=== PATIENT | female | born 1990 | race Caucasian/White ===

== ENCOUNTER 2018-05-05 18:55 | Inpatient (IN) | payer MEDICAID, SELFPAY ==
--- NOTE | 2018-05-05 19:16 | PCM.HP.OB ---
- Problem List (1) demise before 20 weeks with retention of fetus Status: Acute History Date of Admission: 05/05/18 Final MICHELL: 10/11/18 Final MICHELL Source: US <20 weeks Gestational age: 17 Weeks and 2 Days History of this : This is a 28 year-old, G4, P3, at 17 weeks gestational age who presents for IOL for demise. She had her anatomy US on 05/04/18, and was measuring 17 wks at that time with no heart beat. She has no complaints or symptoms today. Medical History: Medical History (Last Updated 05/05/18 @ 19:19 by Eunice Jensen DO) Marijuana use F12.90 Seizure R56.9 Allergies No Known Allergies Allergy (Verified 04/13/16 13:14) Home Medications: Home Medications Pnv95/Ferrous Fumarate/FA [ Formula] 1 each PO DAILY MDD 1 01/24/16 Ibuprofen [Motrin] 800 mg PO TID PRN #30 tablet 08/20/16 Smoking Status: Current every day smoker Number of Fetus(es): 1 History Past Pregnancies: Past Pregnancies Delivery Date Name GA/Weeks Outcome Route Weight Infant Gender Labor Length Anesthesia Delivery Location Provider FOB term term term Labs: Syphilis NR, RI, HepB neg, HIV NR, Rh pos, Angel screen neg, Urine tox pos cannabinoids, GC/CT neg Expected Delivery Method: Spontaneous Vaginal Review of Systems Unable to obtain accurate/complete ROS d/t: Patient very tearful and upset on exam. She denies symptoms Physical Exam General: Alert, Oriented x3 HEENT: Atraumatic Lungs: - - No increased resp effort Abdomen: Soft, Non Tender Extremities:: No edema Neurological: Neuro grossly intact STAFFING AND SCHEDULING COORDINATOR: Normal external genitalia Cervix Dilation (cm): 0 Assessment/Plan All Active Problems (Last Updated 05/05/18 @ 19:19 by Eunice Jensen DO) Dental abscess (Acute) demise before 20 weeks with retention of fetus (Acute) This is a 28 year-old, , at 17 weeks gestational age who presents for IOL for demise. - Admit to L&D - Cytotec 400mcg PV q 6 hrs - Discussed pain control options with patient. May have either epidural, nubain, or dilaudid pin cleaner as needed per patient request - Saline lock IV for now - Briefly reviewed option for genetic testing. Will discuss more after delivery - Will plan to send placenta to pathology - Support provided at bedside - Placed first dose of Cytotec
--- NOTE | 2018-05-05 19:21 | HP.PCM_ITS ---
- Problem List (1) demise before 20 weeks with retention of fetus Status: Acute History Date of Admission: 05/05/18 Final MICHELL: 10/11/18 Final MICHELL Source: US <20 weeks Gestational age: 17 Weeks and 2 Days History of this : This is a 28 year-old, G4, P3, at 17 weeks gestational age who presents for IOL for demise. She had her anatomy US on 05/04/18, and was measuring 17 wks at that time with no heart beat. She has no complaints or symptoms today. Medical History: Medical History (Last Updated 05/05/18 @ 19:19 by Eunice Jensen DO) Marijuana use F12.90 Seizure R56.9 Allergies No Known Allergies Allergy (Verified 04/13/16 13:14) Home Medications: Home Medications Pnv95/Ferrous Fumarate/FA [ Formula] 1 each PO DAILY MDD 1 01/24/16 Ibuprofen [Motrin] 800 mg PO TID PRN #30 tablet 08/20/16 Smoking Status: Current every day smoker Number of Fetus(es): 1 History Past Pregnancies: Past Pregnancies Delivery Date Name GA/Weeks Outcome Route Weight Infant Gender Labor Length Anesthesia Delivery Location Provider FOB term term term Labs: Syphilis NR, RI, HepB neg, HIV NR, Rh pos, Angel screen neg, Urine tox pos cannabinoids, GC/CT neg Expected Delivery Method: Spontaneous Vaginal Review of Systems Unable to obtain accurate/complete ROS d/t: Patient very tearful and upset on exam. She denies symptoms Physical Exam General: Alert, Oriented x3 HEENT: Atraumatic Lungs: - - No increased resp effort Abdomen: Soft, Non Tender Extremities:: No edema Neurological: Neuro grossly intact DRIVER MANAGER: Normal external genitalia Cervix Dilation (cm): 0 Assessment/Plan All Active Problems (Last Updated 05/05/18 @ 19:19 by Eunice Jensen DO) Dental abscess (Acute) demise before 20 weeks with retention of fetus (Acute) This is a 28 year-old, , at 17 weeks gestational age who presents for IOL for demise. - Admit to L&D - Cytotec 400mcg PV q 6 hrs - Discussed pain control options with patient. May have either epidural, nubain, or dilaudid art coordinator as needed per patient request - Saline lock IV for now - Briefly reviewed option for genetic testing. Will discuss more after delivery - Will plan to send placenta to pathology - Support provided at bedside - Placed first dose of Cytotec
[2018-05-05] MEDS: miSOPROStol 200 MCG Tablet 400 MCG VAGINAL (19:45)
[2018-05-05] MEDS: 0.9% Saline Lock 10 ML Syringe IV (20:05)
[2018-05-05 20:22] VITALS: BMI 37.2
[2018-05-05 20:41] LABS: Hematocrit 39.9 % (37-47); Mean Corp Hgb Conc 35.1 g/gl (32-36); Mean Corpuscular Hgb 30.9 pg (27.0-32.0); Mean Corpuscular Volume 88.1 fL (81-99); Platelet Count 243 K/mm3 (150-450); RBC Distribution Width CV 13.4 % (11.6-14.6); RBC Distribution Width SD 42.9 fl (35.1-43.9); Red Blood Count 4.53 M/mm3 (4.2-5.4); Scan Indicated on CBC? Y/N NO; White Blood Count 11.1 K/mm3 (4.4-11.0)
[2018-05-06] MEDS: miSOPROStol 200 MCG Tablet 400 MCG VAGINAL ×4 (02:06→15:55)
--- NOTE | 2018-05-06 08:25 | PCM.PN.BLA ---
Progress Note Third dose of Cytotec 400mcg coated in betadine and placed in posterior fornix. Fetus palpated to be lower, but unable to assess cervical dilation given cervix very posterior. Pt tearful and upset. Family and RN at bedside for support.
--- NOTE | 2018-05-06 08:37 | CASEMGMT ---
Addendum entered by Zee Wang 05/06/18 12:50: SW met with pt. Pt's mom is present in room. Pt gave this worker permission to speak to pt in front of guest. Pt states that she is getting through things. SW offered support to pt. Pt states that she has good support around her and she currently see's a counselor at [facility] and she plans on continuing counseling services at discharge. Pt denied wanting additional resources for herself but states that her significant other Jacob is struggling and mentioned getting help. SW provided pt with counseling services resources and information on support groups in the event pt wants additional information/resources or pt's significant other wants information on services available. Pt denied additional needs or concerns at this time. Original Note: Social Work Note SW attempted to see pt to check in with pt and offer support. Patient currently being seen by medical staff and this worker unable to talk to pt at this time. SW will attempt to see pt later if time allows today or will wait to see if referral is made by staff to see pt. Zee Wang [employer]ER, EVP OPERATIONS
--- NOTE | 2018-05-06 12:28 | PCM.PN.BLA ---
Progress Note At bedside for cytotec placement. Cvx 1.5/t/h. Cytotec 400 mcg coated in betadine and placed in posterior fornix. Pt not feeling cramping. No VB. Continue current management with Cytotec 400 mcg q 4 hrs
[2018-05-06] MEDS: Nalbuphine 10 MG/ML Ampul IV (15:29)
[2018-05-06] MEDS: 0.9% Saline Lock 10 ML Syringe IV (15:31)
--- NOTE | 2018-05-06 15:59 | PCM.PN.BLA ---
Progress Note Pt now feeling cramping. S/p 1 dose of Nubain. Cvx 3-4 cm, bag of water palpated. Cytotec 400 mcg coated in betadine and placed in posterior fornix. Continue current management.
--- NOTE | 2018-05-06 16:30 | PLAC_PTH ---
PATIENT: RICH ENCARNACION LOC: [facility] U#:[id number] AGE/SX: 28/F ROOM: WP021 RE05/05/[address]: Dr. Eunice Jensen DO : 1990 BED: 1 DIS: 05/07/2018 SPEC #: [id number] RECD: 05/07/18 05:50 STATUS: MAGALIS REClarita #: [id number] ROXIE: 05/06/18 16:[address]: Eunice Jensen DEPT: SURGICAL PATHOLOGY RECD BY: Wili Blum ENTERED: 05/08/18 11:31 SP TYPE: PLACENTA OTHR DR: No Primary Care Phys Tissues: Placenta, NOS Procedures: Surgery Specimen Level IV HEADER OPERATION: D & C PRE-OP DIAGNOSIS: demise TISSUE SUBMITTED: Placenta MICROSCOPIC DIAGNOSIS Placenta: Immature placental tissue including umbilical cord and membranes (56 gm), no pathologic diagnosis. SJ:keke 10/9/18 MICROSCOPIC DESCRIPTION Slides are reviewed. GROSS DESCRIPTION Received is one container labeled with the patient's name and not further designated. The specimen consists of multiple pieces of placental tissue that in aggregate measure 11 x 10 x 3 cm and weighing 56 gm. A piece of membrane is also noted which is mullins glistening. A piece of umbilical cord is also noted measuring 23 cm in length and 0.2 cm in diameter. Sections do not reveal any mass lesion. Safe Deposit Clerk sections are submitted in four cassettes. Cassette 1 contains the umbilical cord and membrane. / FATOU:keke 05/08/18 TC:5 CPT: 93560
[2018-05-06] MEDS: Methylergonovine 0.2 MG/ML Ampul IM (16:52)
--- NOTE | 2018-05-06 17:28 | PCM.OB.VAG ---
- Problem List (1) demise, less than 22 weeks, delivered, current hospitalization Status: Acute Vaginal Delivery Maternal Presentation: Medically Indicated Induction - demise with retention of fetus Method of Induction: Cytotec Medical Reason for Induction: demise Amniotic Membrane Rupture Type: Spontaneous Amniotic Fluid Description: Clear Final MICHELL: 10/11/18 Gestational age: 17 Weeks and 3 Days Date of Procedure: 05/06/18 Pre-Operative Diagnosis: Demise, Induction Post-Operative Diagnosis: Vaginal delivery of demise Surgery/ Procedure Performed: Spontaneous Vaginal Delivery Type of Anesthesia: None Description of Procedure: Patient called out to nursing staff that her water had broken. Upon entrance into the room the patient stated, It came out. Vaginal delivery of fetus into bed. Cord wrapped around neck x3 and around arm x1 tightly. Cord cut and wrapped in blanket, handed to mother. Mother very tearful, emotional support provided. Small gush of blood, placenta remained undelivered. Pitocin 10 units IM x 1. consulted and ordered 0.2mcg Methergine IM x 1 for placenta delivery. Bleeding stable. Will await delivery of placenta. A gender: Male Episiotomy Description: None Laceration: None Medications given after delivery: IM Methergin, - - IM Pitocin
[2018-05-06 18:00] VITALS: BP 116/70; PULSE 62; RESP 18; TEMP 37.3
--- NOTE | 2018-05-06 18:23 | NURSING ---
baby delivered at 1630 in room immediately after water broke. Father of baby came to nurses station, Calista Lerma CNM and RN to room. Baby delivered in bed. Placenta not out at this time. 135grams 18 cm length, 5 inch head circumference.
[2018-05-06] MEDS: miSOPROStol 200 MCG Tablet PO (19:01)
--- NOTE | 2018-05-06 19:46 | PCM.PN.OB ---
Patient Problems: Active and Suspected Problems (Last Updated 05/05/18 @ 19:19 by Eunice Jensen DO) demise before 20 weeks with retention of fetus (Acute) demise, less than 22 weeks, delivered, current hospitalization (Acute) Subjective: Patient sitting up in bed. Doing well, upset placenta not delivered. Family present at bedside and coping well. Objective: Cervix approximately 2-3cm dilated, placenta not through cervical os. Bleeding stable. - Physical Exam Vital Signs Temp Pulse Resp BP 99.1 F 62 18 116/70 05/06/18 18:00 05/06/18 18:00 05/06/18 18:00 05/06/18 18:00 Oxygen Delivery Method Room Air Weight: 245 lb Body Mass Index (BMI) 37.2 Laboratory Tests Past 24 Hrs 05/05/18 05/05/18 20:05 20:05 WBC 11.1 H RBC 4.53 Hgb 14.0 Hct 39.9 MCV 88.1 MCH 30.9 MCHC 35.1 RDW 13.4 RDW Differential 42.9 Plt Count 243 MPV 11.0 Blood Type O POSITIVE Antibody Screen NEGATIVE Medical Necessity - Tobacco Use Smoking Status: Current every day smoker Assessment/Plan All Active Problems (Last Updated 05/05/18 @ 19:19 by Eunice Jensen DO) Dental abscess (Acute) demise before 20 weeks with retention of fetus (Acute) demise, less than 22 weeks, delivered, current hospitalization (Acute) A: Vaginal delivery of demise Retained placenta P: 1) notified of placenta retained and not expelled fter dose of cytotec and methergine. 2) Reviewed options with patient and agreeable to D&C. to L&D for consent and referral of management.
--- NOTE | 2018-05-06 20:12 | PCM.PN.BLA ---
Progress Note At bedside to discuss suction D&C with patient for retained placenta. Reviewed risks including bleeding, infection, uterine perforation. Consent signed. Doxy 200mg IV x 1 to be given pre-op.
[2018-05-06] MEDS: Sodium Citrate/Citric Acid 30 ML UDC PO (20:22)
[2018-05-06] MEDS: Lactated Ringers 1,000 ML 50 ML IV ×2 (20:22→22:16)
[2018-05-06 21:45] VITALS: BP 112/65; PULSE 58; RESP 16; TEMP 36.9; O2SAT 96
--- NOTE | 2018-05-06 21:54 | PCM.OP.BLANK ---
Problem List (1) demise before 20 weeks with retention of fetus Status: Acute Operative Report Date of Procedure: 05/06/18 Preoperative diagnosis: Retained placenta Postoperative diagnosis: Retained placenta Procedure performed: Suction dilation and curettage under ultrasound guidance Anesthesia: MAC Estimated blood loss: 500 cc Complications: None Findings: Retained placenta Indications: The patient is a 28-year-old who presented on 05/05/18 for induction for a 17-week demise. Her induction was started with Cytotec and she delivered the fetus. She was given Pitocin, Methergine, and Cytotec and the placenta did not deliver after adequate time. Decision was made to proceed with a suction dilation and curettage for retained placenta. Risks, benefits, and alternatives were discussed and patient was consented. Procedure: The patient was given Doxycyline before the procedure. She was taken to the operating room where MAC anesthesia was administered without difficulty and was found to be adequate. The patient was prepped and draped in the usual sterile fashion in dorsal lithotomy position using yellow fin stirrups. A weighted speculum was placed. The anterior lip of the cervix was grasped with a ring forcep. The uterus was palpated to be about 12 weeks size. The cervix was dilated. A 12 mm suction curettage was advanced into the uterine cavity without difficulty and was used to suction contents of the uterus. A sharp curettage was then advanced into the uterine cavity and used to scrape the 4 brar of the uterus to remove additional products of conception and small pieces. The suction curettage and sharp curettage were performed several additional times, and the placenta was removed in small adherent pieces. Ultrasound was performed throughout the procedure. The uterus was boggy, and methergine x 1 as well as pitocin were given. The sharp curettage was then used again to scrape the 4 brar of the uterus until a gritty texture was noted. At this time a suction curettage was advanced one additional time to suction any remaining products. Ultrasound showed no remaining products of conception within the uterus. All instruments were removed. Hemostasis was noted. The patient was stable at the completion of the procedure. Sponge, lap, instrument counts were correct.
[2018-05-06 22:00] VITALS: BP 127/62; PULSE 56; RESP 16; O2SAT 96
[2018-05-06 22:15] VITALS: BP 115/68; PULSE 61; RESP 17
[2018-05-06 22:22] LABS: Hematocrit 34.8 % (37-47); Mean Corp Hgb Conc 34.5 g/gl (32-36); Mean Corpuscular Hgb 30.4 pg (27.0-32.0); Mean Corpuscular Volume 88.1 fL (81-99); Mean Platelet Vol. 10.8 fl (6.2-12.0); Platelet Count 228 K/mm3 (150-450); RBC Distribution Width CV 13.1 % (11.6-14.6); RBC Distribution Width SD 42.4 fl (35.1-43.9); Red Blood Count 3.95 M/mm3 (4.2-5.4); White Blood Count 11.5 K/mm3 (4.4-11.0)
[2018-05-06 22:24] LABS: Scan Indicated on CBC? Y/N NO
[2018-05-06 22:36] VITALS: BP 112/72; PULSE 51; RESP 16; O2SAT 96
[2018-05-06 22:37] LABS: Prothrombin Time (Protime)PT. 13.3 SECONDS (11.7-14.9)
[2018-05-06 22:38] LABS: Partial Thromboplast Time 30.3 Seconds (24.1-36.2)
[2018-05-06 22:45] VITALS: BP 112/70; PULSE 66; RESP 17; TEMP 37.2
[2018-05-07 02:00] VITALS: PULSE 64; RESP 17
[2018-05-07 06:21] LABS: Hematocrit 31.7 % (37-47); Mean Corp Hgb Conc 34.7 g/gl (32-36); Mean Corpuscular Hgb 30.7 pg (27.0-32.0); Mean Corpuscular Volume 88.5 fL (81-99); Mean Platelet Vol. 11.3 fl (6.2-12.0); Platelet Count 211 K/mm3 (150-450); RBC Distribution Width SD 40.1 fl (35.1-43.9); Red Blood Count 3.58 M/mm3 (4.2-5.4); White Blood Count 11.6 K/mm3 (4.4-11.0)
[2018-05-07 06:23] LABS: Prothrombin Time (Protime)PT. 13.5 SECONDS (11.7-14.9); Scan Indicated on CBC? Y/N NO
[2018-05-07 06:37] LABS: Partial Thromboplast Time 27.8 Seconds (24.1-36.2)
[2018-05-07 08:00] VITALS: BP 120/65; PULSE 66; RESP 16; TEMP 37.6
--- NOTE | 2018-05-07 08:14 | DCINST_ITS ---
- Discharge Diagnoses Current Active Problems: Current Active and Chronic Problems (Last Updated 05/05/18 @ 19:19 by Eunice Jensen DO) demise before 20 weeks with retention of fetus (Acute) demise, less than 22 weeks, delivered, current hospitalization (Acute) You will use the following diet at home:: No restrictions Your food should be the consistency of: Regular Discharge Activity: Return to Normal Activity, May Shower May resume sexual activity in: 4-6 weeks Weight Bearing Status: Full weight bearing Lifting Restrictions: None Call your doctor if you observe: Fever of 101 or Higher, Using more than one pad per hour, Shortness of breath, Chest pain, Calf discomfort, Uncontrolled pain Additional Instructions: Please follow up in the office in 1-2 weeks. Allergies/Adverse Reactions: Allergies No Known Allergies Allergy (Verified 04/13/16 13:14) Medications to take at Discharge Pnv95/Ferrous Fumarate/FA [ Formula] 1 each PO DAILY MDD 1 01/24/16 Ibuprofen [Motrin] 800 mg PO TID PRN #30 tablet 08/20/16 Primary Care Physician: Care Physician,No Primary [Primary Care Provider] - Test Results: Test results from this visit will be discussed in further detail at your follow- up appointment, if applicable.
[2018-05-07 08:17] LABS: Pathology Specimen OB SEE PATHOLOGY REPORT
== END 2018-05-07 09:55 | disposition home or self-care (01) | DRG 381 ==
LOC: WP 18:58
PROVIDERS: Admitting Provider Obstetrics & Gynecology; Visit Provider Obstetrics & Gynecology
DX: O02.1 Missed abortion (principal); O73.0 Retained placenta without hemorrhage; Z3A.17 17 weeks gestation of pregnancy; Z37.1 Single stillbirth; O69.1XX0 Labor and delivery complicated by cord around neck, with compression, not applicable or unspecified; O99.334 Smoking (tobacco) complicating childbirth; O99.214 Obesity complicating childbirth
CPT/HCPCS: 85027; 85610; 85730; 86850; 86900; 88305; 88307; 99218; J7120; A4216; G0378

== ENCOUNTER 2018-05-07 11:26 | Emergency (ER) | payer MEDICAID, SELFPAY ==
[2018-05-07 11:27] VITALS: BP 142/72; PULSE 81; RESP 20; TEMP 36.9; O2SAT 99; BMI 37.8
--- NOTE | 2018-05-07 11:42 | ED.VISSUMM ---
- ER Visit Summary Date of Service: 05/07/18 Chief Complaint: Acute syncopal events x2 History of Present Illness: The patient is a 28 F status post D&C for a first trimester demise yesterday. Patient did well was discharged home this morning. She got out of the car and walk in her house she felt lightheaded and had an episode where she passed out and then passed out again. She denied any headache, no chest pain. No abdominal pain. States that she has been bleeding much since the D&C. They did not need to transfuse her. She denies any irregular heartbeat or chest pain. She has passed out before in the past. No melena. No fever. She states I feel fine now. Physical Examination: Well-appearing young female. Vital signs are stable afebrile. Also is 9 9% room air no signs of hypoxia. Heart rate 81. Current blood pressure 142/72. H EENT exam normal. Pupils round reactive light. No signs of trauma. Neck nontender. Lungs clear to auscultation bilaterally. Heart regular rate and rhythm no murmur. Rate about 80. Abdomen soft nontender. Normal bowel sounds no peritoneal signs. She is moving all 4 extremities. They are neurovascularly intact. Calves are nontender without edema nor cords. Neurologically she is awake alert with no focal motor deficits. Back exam is nontender. Test Results: CBC shows white count of 10. Hemoglobin 10.3. Previously it was 11. Emergency Department Course and Treatment: Patient treated with a liter of normal saline. Patient is doing well repeat exam. Will be discharged home. I did go over test results with her and her . Treatment Plan: Fluids and rest. Follow-up with your NUMBERER AND WIRER physician this coming week. Return if feeling worse. Disposition: Discharge Impression: Acute syncope Mild anemia Status post D&C yesterday for demise This note was generated with [employer] dictation software. It may contain incorrect words, spelling, and punctuation that were not noted in review of the chart prior to signing ED Disposition - Plan for ED Patient: Chief Complaint: Syncope Referrals: Care Physician,No Primary [Primary Care Provider] -
[2018-05-07] MEDS: 0.9% Normal Saline 1,000 ML 1000 ML IV (11:45)
[2018-05-07 11:46] VITALS: BP 132/76; BP 134/97; BP 135/98; PULSE 71; PULSE 78; PULSE 98
[2018-05-07 12:06] LABS: Hematocrit 29.4 % (37-47); Hemoglobin 10.3 g/dl (12.0-15.0); Mean Corpuscular Hgb 30.5 pg (27.0-32.0); Mean Platelet Vol. 10.5 fl (6.2-12.0); Platelet Count 224 K/mm3 (150-450); RBC Distribution Width CV 13.3 % (11.6-14.6); RBC Distribution Width SD 42.6 fl (35.1-43.9); Red Blood Count 3.38 M/mm3 (4.2-5.4)
[2018-05-07 12:07] LABS: Scan Indicated on CBC? Y/N NO
--- NOTE | 2018-05-07 12:20 | ED.DEP ---
ED Disposition - Plan for ED Patient: Disposition: Home or Assisted Living Chief Complaint: Syncope Instructions: Anemia Referrals: Eunice Jensen DO [STAFF PHYSICIAN] - 1-2 Days if not improving Additional Instructions: Plenty of fluids and rest. Return if feeling worse. Otherwise follow-up with your ITINERANT TEACHER ASSISTANT physician.
[2018-05-07 12:31] VITALS: BP 150/92; PULSE 88; RESP 16; O2SAT 98
== END 2018-05-07 12:32 | disposition home or self-care (01) ==
PROVIDERS: Emergency Provider Emergency Medicine
DX: R55 Syncope and collapse (principal); D64.9 Anemia, unspecified; Z98.890 Other specified postprocedural states; Z72.0 Tobacco use
CPT/HCPCS: 36415; 85027; 96360; 99285; J7030; A4216

== ENCOUNTER 2020-01-14 10:45 | Emergency (ER) | payer OTHER, SELFPAY ==
[2020-01-14 10:45] VITALS: BP 150/94; PULSE 83; RESP 20; O2SAT 100
[2020-01-14 10:46] VITALS: BP 158/96; PULSE 90; RESP 17; TEMP 36.6; O2SAT 98; BMI 31.4
--- NOTE | 2020-01-14 10:53 | NURSING ---
NO OLD EKGS
--- NOTE | 2020-01-14 10:59 | ED.RN ---
pt was at work today felt funny sat down and per wood preparation supervisor said got real shakey and went out unsure of how long and denies any dizziness or lightheadedness now and able to ambulate back to room unassisted. sr on monitor and vs stable
--- NOTE | 2020-01-14 11:05 | EKG12_ITS ---
Test Reason : SYNCOPE Blood Pressure : / mmHG Vent. Rate : 060 BPM Atrial Rate : 060 BPM P-R Int : 146 ms QRS Dur : 096 ms QT Int : 410 ms P-R-T Axes : 054 061 030 degrees QTc Int : 410 ms Normal sinus rhythm with sinus arrhythmia Normal ECG Confirmed by ANTONIO MOLINA, [place] ([id number]), editor index SARINA GOLDBERG ([id number]) on 01/15/2020 11:18:46 AM Referred By: WINNIE Confirmed By:CLINTON ALVAREZ MD
--- NOTE | 2020-01-14 11:07 | CT_ITS ---
STUDY: CTA HEAD AND NECK WITH CONTRAST REASON FOR EXAM: Female, 30 years old. PT STATED HEADACHE, SYNCOPE, FAMILY HX ANEURYSM RADIATION DOSAGE (If Supplied By Facility): CTDIvol = ( 30.56 ) mGy, DLP = ( 1468.40 ) mGycm TECHNIQUE: CT angiography was performed with a multi-detector CT scanner. Data acquisition was obtained from the skull base through the vertex following intravenous administration of 100ML ISOVUE 370. MIP images were reconstructed from the axial data set. Post-processing of the angiographic images was performed, with multiplanar reformation and 3D reconstruction. Individualized dose optimization techniques were used for this CT. COMPARISON: No relevant priors. FINDINGS: Normal bilateral petrous carotid arteries. Normal right cavernous carotid artery with a normal supraclinoid bifurcation. Normal left cavernous carotid artery with a normal supraclinoid bifurcation. Normal right A1 segments of the anterior cerebral artery. Normal left A1 segments of the anterior cerebral artery. Normal intact anterior communicating artery (ACOM). Normal bilateral A2 segments of the anterior cerebral arteries. Normal right M1 and M2 segments of the middle cerebral arteries, with a normal M1 bifurcation. Normal left M1 and M2 segments of the middle cerebral arteries, with a normal M1 bifurcation. Normal right posterior communicating artery (PCOM). Normal left posterior communicating artery (PCOM). Normal bilateral vertebral arteries. Normal basilar artery with a normal basilar bifurcation. The visualized bilateral superior cerebellar (SCA) arteries are normal. Normal bilateral P1, P2 and visualized P3 segments of the posterior cerebral arteries. There is no demonstrated aneurysm of the [place]. There is no demonstrated abnormality of the visualized brain. AORTIC ARCH: Normal visualized aortic arch. Normal origins of the brachiocephalic, left common carotid, and left subclavian arteries. RIGHT CAROTID ARTERIES: Normal right common carotid artery (CCA). Normal right common carotid bulb. Normal origin of the right internal carotid (ICA) artery without a hemodynamically significant stenosis. Normal visualized cervical portion of the right internal carotid artery. Normal origin of the right external carotid artery (ECA). LEFT CAROTID ARTERIES: Normal left common carotid artery (CCA). Normal left common carotid bulb. Normal origin of the left internal carotid (ICA) artery without a hemodynamically significant stenosis. Normal visualized cervical portion of the left internal carotid artery. Normal origin of the left external carotid artery (ECA). VERTEBRAL ARTERIES: Normal bilateral vertebral arteries. CT/CTA Head AND Neck W/ Contrast IMPRESSION: Normal CTA Head and neck with contrast. Electronically Signed: Renan Pacheco, at 14:40 EDT , Service support ,
--- NOTE | 2020-01-14 11:10 | ED.DCSUM_ITS ---
History of Present Illness Chief Complaint: Syncope Narrative: Patient presenting for evaluation secondary to headaches and syncope. Patient reports that since July she has been having episodes where she will get a left temporal headache. She reports that this will come on is very sharp in quality, occasionally is associated with some visual changes in her right eye, and then is associated with her feeling shaky and then passing out. Patient states that when she passes out, she does not necessarily lose bowel or bladder continence, but is unable to really quantify how long she is unconscious. She denies that preceding these episodes she is having any sort of chest pain palpitations or shortness of breath. Patient states that these episodes are not really induced by anything, and denies that they are associated with eating, drinking, times a day, increased stress, or any other extraneous factors. P atient reports that these episodes have been increasing in frequency and now are happening almost on a daily basis. Headaches are always on the left side. Patient does have a family history of a grandmother that of a brain aneurysm in 2007. No personal history of aneurysms or connective tissue disease. Patient is otherwise healthy, is not on any sort of medications. She denies any recent infectious signs or symptoms such as fever cough nausea vomiting diarrhea skin rashes or abdominal pain. Patient does not believe that she is , most recent menstrual cycle was 2 weeks ago. She denies any personal or family history of malignant cardiac arrhythmias or sudden . Past Medical History - Allergies and Home Meds Allergies/Adverse Reactions: Allergies No Known Allergies Allergy (Verified 01/14/20 10:46) Primary Care Physician: Care Physician,No Primary [Primary Care Provider] - Prior records reviewed: Yes Past Medical History: None Smoking Status: Current every day smoker Review of Systems All systems negative except as indicated General: Denies: Fever, Malaise, Weight loss Eyes: Reports: Visual changes - right ENT: Denies: Rhinorrhea, Sore throat Cardiovascular: Reports: - - Syncope Respiratory: Denies: Dyspnea, Cough, Dyspnea on exertion Gastrointestinal: Denies: Abdominal pain, Nausea, Vomiting, Diarrhea, Melena, Hematochezia Genitourinary: Denies: Dysuria, Hematuria, Frequency Musculoskeletal: Denies: Back pain, Extremity Pain Skin: Denies: Rash, Wounds Neurological: Reports: Headache Physical Exam Vital Signs/Narrative: Vital Signs Temp Pulse Resp BP Pulse Ox 01/14/20 10:46 97.9 F 90 17 158/96 H 98 01/14/20 10:45 83 20 H 150/94 H 100 Inital Vital Signs reviewed: Yes General: Well nourished, Well developed, No Acute Distress Head: Normocephalic, Atraumatic, - - No temporal artery tenderness Eyes: Perrl, EOMI, - - Normal fundoscopy with sharp discs bilaterally and no retinal hemorrhages ENT: Moist mucous membranes, No rhinorrhea Neck: Supple, Nontender Cardiovascular: Regular rate, Regular rhythm, No murmurs Respiratory: No distress, CTA bilaterally, Chest nontender Abdomen: Soft, Nontender, Nondistended, Normal bowel sounds Back: Nontender, Normal Inspection Extremities: Nontender, No edema Skin: Normal color, No rash Neurological: Alert, Oriented x3, Cranial nerves II-XII grossly intact, Normal Strength, Normal Sensation Psychological: Normal affect, Normal Mood Diagnostic/Tx/Re-eval Clinical Impression(s) from Imaging Studies Head/Neck CTA 01/14/20 11:07 IMPRESSION: Normal CTA Head and neck with contrast. Electronically Signed: Renan Pacheco, at 14:40 EDT , Service support , Chest X-Ray 01/14/20 14:09 IMPRESSION: Normal x-ray examination of the chest. Electronically Signed: Renan Pacheco, at 14:33 EDT , Service support , Laboratory Data 01/14/20 01/14/20 01/14/20 11:55 11:55 11:55 WBC 8.9 RBC 5.73 H Hgb 17.4 H Hct 50.7 H MCV 88.5 MCH 30.4 MCHC 34.3 RDW Std Deviation 41.6 RDW Coeff of Ciara 12.9 Plt Count 300 MPV 10.3 Immature Gran % (Auto) 0.300 Neut % (Auto) 67.6 Lymph % (Auto) 26.6 Hamilton % (Auto) 4.8 Eos % (Auto) 0.3 Baso % (Auto) 0.4 Absolute Neuts (auto) 6.0 Absolute Lymphs (auto) 2.37 Nucleated RBC % 0 D-Dimer Quant (PE/DVT) 0.37 Sodium 137 Potassium 3.7 Chloride 103 Carbon Dioxide 27.0 Anion Gap 7 BUN 8 Creatinine 0.73 Estim Creat Clear Calc 113.67 Est GFR (MDRD) Af Amer 120 Est GFR (MDRD) Non-Af 99 BUN/Creatinine Ratio 10.9 Glucose 85 Calcium 9.5 Troponin I < 0.015 Serum , Qual 01/14/20 11:55 WBC RBC Hgb Hct MCV MCH MCHC RDW Std Deviation RDW Coeff of Ciara Plt Count MPV Immature Gran % (Auto) Neut % (Auto) Lymph % (Auto) Hamilton % (Auto) Eos % (Auto) Baso % (Auto) Absolute Neuts (auto) Absolute Lymphs (auto) Nucleated RBC % D-Dimer Quant (PE/DVT) Sodium Potassium Chloride Carbon Dioxide Anion Gap BUN Creatinine Estim Creat Clear Calc Est GFR (MDRD) Af Amer Est GFR (MDRD) Non-Af BUN/Creatinine Ratio Glucose Calcium Troponin I Serum , Qual NEGATIVE - EKG Initial EKG Interpretation: - - Sinus rhythm at 68 with sinus arrhythmia. Normal PA and QTc intervals. No evidence of WPW or Brugada morphology. No evidence of acute ischemia or arrhythmia. - Medical Decision Making Patient presented secondary to episodes of headaches that are increasing in frequency that are typically associated with unilateral pain and syncope. She came to the historical factor that she has a family member that did of an aneurysm, so broad work-up was obtained. CBC chemistry troponin and d-dimer were obtained which were all found to be unremarkable. EKG was negative. Patient did not have any evidence of malignant arrhythmias while in the emergency department. Chest x-ray unremarkable per my personal review as well as radiology. CT angiogram of the head and neck per radiology also found to be negative. Given the patient's negative emergency department work-up, I am not concerned for leaking aneurysm, tumor, significant cardiac abnormality, PE, or any reason that would require admission at this point. Patient is reporting that these episodes are increasing in frequency and I believe that they likely are associated with a atypical presentation of a migraine headache. I believe the patient would benefit from evaluation by a neurologist and potential initiation of prophylactic therapy for migraines. Patient will be given follow- up as an outpatient with neurology. Patient was discharged in stable condition. ED Disposition - Plan for ED Patient: Disposition: Home or Assisted Living Diagnosis: Migraine headache Instructions: ED, Migraine (Classical) Referrals: Tiburcio Morales MD [STAFF PHYSICIAN] - As soon as possible
[2020-01-14 12:08] LABS: Absolute Lymphocyte Count 2.37 X10^3/uL (0.83-4.51); Basophil# 0.04 X10^3/uL; Basophil% 0.4 % (0-1); Eosinophil# 0.03 X10^3/uL; Eosinophils% 0.3 % (0-5); Hematocrit 50.7 % (37-47); Hemoglobin 17.4 g/dL (12.0-15.0); Lymphocyte # 2.37 X10^3/ul (4.0); Lymphocyte % 26.6 % (19-41); Mean Corp Hgb Conc 34.3 g/dL (32-36); Mean Corpuscular Hgb 30.4 pg (27.0-32.0); Mean Corpuscular Volume 88.5 fL (81-99); Mean Platelet Vol. 10.3 fl (6.2-12.0); Monocyte# 0.43 X10^3/uL; Monocyte% 4.8 % (0-10); NRBC Flagged by Analyzer 0 % (0-5); Neutrophil # 6.01 X10^3/uL (2.7-7.7); Neutrophil % 67.6 % (47-70); Platelet Count 300 K/mm3 (150-450); RBC Distribution Width CV 12.9 % (11.6-14.6); RBC Distribution Width SD 41.6 fl (35.1-43.9); Red Blood Count 5.73 M/mm3 (4.2-5.4); White Blood Count 8.9 K/mm3 (4.4-11.0)
[2020-01-14 12:17] LABS: Internal QC Validated? YES +Cl - CLEAR BKGD; Pregnancy, Serum, hCG Quali. NEGATIVE Negative
[2020-01-14 12:20] LABS: D-Dimer Quantitative (DVT/PE) 0.37 FEU/ug/m (0.27-0.49)
[2020-01-14 12:25] LABS: Anion Gap 7 (5-15); BUN 8 mg/dL (7-18); BUN/Creat Ratio 10.9 RATIO (10-20); Calcium,Total 9.5 mg/dL (8.5-10.1); Chloride 103 mmol/L (98-107); Creatinine, Serum 0.73 mg/dL (0.55-1.02); EST Glomerular Filtration Rate 99 mL/min (>60); Est Glom Filt Rate - Afr Amer 120 mL/min (>60); Estimated Creatinine Clearance 113.67 ml/min; Glucose 85 mg/dL (74-106); Potassium 3.7 mmol/L (3.5-5.1); Sodium Level 137 mmol/L (136-145)
--- NOTE | 2020-01-14 14:09 | RAD_ITS ---
STUDY: X-RAY CHEST REASON FOR EXAM: Female, 30 years old. Pat states since july she has had shaking with syncopal episodes. TECHNIQUE: Single AP portable view of the chest. COMPARISON: None. FINDINGS: EKG electrodes are seen. The lungs are clear and expanded. There is no demonstrated pleural abnormality. Normal size heart. Calcified bilateral hilar lymph nodes. Normal visualized pulmonary arteries. Normal visualized aortic arch and descending thoracic aorta. Normal visualized thoracic spine. Normal visualized ribs, clavicles, and shoulders. There is no demonstrated abnormality of the visualized soft tissue structures of the upper abdomen. RAD/Chest 1 View (Portable) IMPRESSION: Normal x-ray examination of the chest. Electronically Signed: Renan Pacheco, at 14:33 EDT , Service support ,
[2020-01-14] MEDS: 0.9% Normal Saline 1,000 ML 999 ML IV (14:25)
[2020-01-14 14:45] VITALS: BP 122/79; PULSE 53; RESP 19; O2SAT 99
--- NOTE | 2020-01-14 15:15 | CM.ED ---
Social Work Consult: Referral for resources/financial Informant: Dr. Subramanian This social work lecturer met with patient in room. Introduced self as well as social work lecturer role. Patient agreeable to speaking with this social work lecturer. Patient tearful during conversation with social work lecturer as patient is not sure how patient will pay for medical bills. Patient states to have been in good health but to now have a referral to a neurologist and ED bill. Patient educated on [employer] program and provided with form to complete. Patient states to have no insurance at this time as to not meet financial qualifications for medicaid and patient work recently stopped insuring employees as of 2018 my boss messed it up. 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 Patient states that patient father helps with early childhood services coordinator when patient is working. Patient reports no concerns in the community but to now be concerned about medical bills. This social work lecturer encouraging patient to be open with providers and ask about assistance programs and to also look into medicaid options, if patient accrues medical bills further. Active support and listening provided. Richelle SPANN, JOY
== END 2020-01-14 15:27 | disposition home or self-care (01) ==
PROVIDERS: Emergency Provider Emergency Medicine
DX: G43.909 Migraine, unspecified, not intractable, without status migrainosus (principal); F17.200 Nicotine dependence, unspecified, uncomplicated
CPT/HCPCS: 70496; 70498; 71045; 80048; 84484; 84703; 85025; 85379; 93005; 99285; J7030; Q9967; A4216

== ENCOUNTER 2020-02-15 10:39 | Emergency (ER) | payer OTHER, SELFPAY ==
[2020-02-15 10:40] VITALS: BP 144/95; PULSE 75; RESP 18; TEMP 36.3; O2SAT 97; BMI 31.7
--- NOTE | 2020-02-15 10:59 | ED.VISSUMM ---
- ER Visit Summary Date of Service: 02/15/20 Chief Complaint: [Fever, cough, sore throat] History of Present Illness: The patient is a 30 F [presents to the emergency department with symptoms that started 2 days ago. Patient complains of chills and sweats. She took her temperature yesterday with a temporal thermometer although the battery line was flashing low and it was elevated at 102. 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 Patient denies urinary symptoms. She denies nausea or vomiting. She denies abdominal pain. She has no medical history.] Physical Examination: [HEENT-PERRLA, EOMI. Cranial nerves II through XII grossly intact. TMs clear. Mucous membranes moist. No adenopathy. Mild pharyngeal erythema. No exudates. Uvula midline without trismus. Cardiovascular-regular rate and rhythm without murmur or ectopy Lungs-clear to auscultation, chest wall stable without crepitus or subcu emphysema Abdomen-normoactive bowel sounds, soft, nontender, no rebound or rigidity, no peritoneal signs. Extremities-intact ?4, normal range of motion, normal pulses, atraumatic] Test Results: [Rapid strep screen performed was negative. COVID-19 test also ordered and will be pending] Emergency Department Course and Treatment: [] Treatment Plan: [Patient advised to self quarantine for 14 days. Patient advised to return if increasing shortness of breath or condition should worsen anyway. Patient will be given referral to primary care physician for follow-up] Disposition: [Discharged home in stable condition] Impression: [Viral URI] This note was generated with [employer] dictation software. It may contain incorrect words, spelling, and punctuation that were not noted in review of the chart prior to signing ED Disposition - Plan for ED Patient: Referrals: Care Physician,No Primary [Primary Care Provider] -
--- NOTE | 2020-02-15 11:31 | ED.DEP ---
ED Disposition - Plan for ED Patient: Instructions: ED URI Viral Referrals: Care Physician,No Primary [Primary Care Provider] - Kalyn Leonard MD [STAFF PHYSICIAN] - 5-7 Days
== END 2020-02-15 11:40 | disposition home or self-care (01) ==
LOC: ED 11:12
PROVIDERS: Emergency Provider Emergency Medicine
DX: J06.9 Acute upper respiratory infection, unspecified (principal)
CPT/HCPCS: 87635; 87880; 99282; G2023; U0003